=== PATIENT | male | born 1995 | race Caucasian/White ===

== ENCOUNTER 2025-08-06 15:13 | Outpatient (AMB) | payer OTHER, SELFPAY ==
--- NOTE | 2025-08-06 15:33 | A.OFFPC_ITS ---
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 Accompanied by: Self / Same As Patient Allergies No Known Allergies Allergy (Verified 08/06/25 15:35) Medication List - Last Reconciled 08/06/25 by Shankar Yanes MD No Known Home Meds Tobacco use date assessed: 08/06/25 Dental Screening Dental Screen Date: 08/06/25 Did you have a dental visit in the last 12 months?: Yes Did you have a dental problem in the last 6 months where you did not have access to dental care?: No Was dental information given to patient?: Patient has dentist HPI HPI Comments History of Present Illness Details History of Present Illness The patient is a 30 year old male presenting to [facility] care and for evaluation of chronic diarrhea and a high cholesterol reading. Diarrhea: The patient reports experiencing unpredictable, diarrhea-like bowel movements for a few years. He notes these symptoms can be triggered by heavy alcohol consumption or by eating certain foods, such as a burrito containing chicken, lettuce, cheese, and queso. He has no prior diagnosis of lactose intolerance or any other gastrointestinal condition, as he has not seen a doctor in 10 years. Hypercholesterolemia: The patient received a high cholesterol reading at a walk-in clinic at his place of employment, which prompted him to seek care. There is a family history of high cholesterol in his father and both of his grandfathers experienced heart attacks. Surgical History: - No surgical history reported. Medications: - The patient denies taking any regular medications. - He has taken [id number] medicati ons for occasional sinus infections. - He recently completed a 7-day course o f an unspecified antibiotic for a sinus infection over Thanksgiving week. Social History: - Employment: The patient works in [employer] for the [employer]. - Alcohol Use: He reports drinking socia lly on weekends, consuming three to four drinks, but does not drink during the week. - Tobacco Use: He denies any history of smoking. - Illicit Drug Use: He denies any use of illicit drugs. - Sleep: He reports good sleep and has n ever had issues with sleeping. Family History: - Father: History of high cholesterol an d high blood pressure. - Grandfathers (maternal and paternal): Both had heart attacks. - Aunt: from cancer. Diagnostic Results: - Labs: A prior cholesterol reading from a walk-in clinic was high. Past Medical History - No significant past medical history re ported. - No prior hospitalizations. - Reports occasional sinus infections. Health Maintenance - Comprehensive lab work was ordered to establish baseline health status. - The panel includes a complete blood co unt (CBC), comprehensive metabolic panel (CMP), hemoglobin A1c, hepatitis B and C screens, HIV screen, lipid panel, magne sium, syphilis screen (RPR), thyroid panel (TSH), urinalysis, vitamin B12, folate, and vitamin D levels. - Follow-up will be scheduled to discuss any abnormalities found in the lab results. - The patient was educated on skin cance r screening using the ABCDEs of melanoma (Asymmetry, Border, Color, Diameter, Evolving) due to the presence of multiple birthmarks on his back. [facility] Medical History (Updated 08/06/25 @ 18:28 by Shankar Yanes MD) Hypercholesterolemia Diarrhea Family History (Updated 08/06/25 @ 15:38 by Lion Craig CMA) Maternal Grandfather Heart attack Paternal Grandfather Heart attack Father Hypertension Paternal Aunt Cancer Family/Other Stroke Social History (Updated 08/06/25 @ 15:39 by Lion Craig CMA) Housing: House Alcohol intake: current Comment: Socially, 3-4 drinks 1 to 2 times a week Patient Tobacco Use Status: Never used Tobacco e-Cigarette/Vaping Use: Never Used Second Hand Smoke Exposure: No service: No Current occupational status: employed Current occupation: [employer] Current occupational exposures/hazards: No Cognitive needs: No Hearing needs: No Vision needs: No Questionnaire PHQ-9 Over the last 2 weeks, how often have you been bothered by any of the following problems? 1. Little interest or pleasure in doing things: not at all 2. Feeling down, depressed, or hopeless: not at all 3. Trouble falling or staying asleep, or sleeping too much: not at all 4. Feeling tired or having little energy: not at all 5. Poor appetite or overeating: not at all 6. Feeling bad about yourself - or that you are a failure or have let yourself or your family down: not at all 7. Trouble concentrating on things, such as reading the newspaper or watching television: not at all 8. Moving or speaking so slowly that other people could have noticed. Or the opposite - being so fidgety or restless that you have been moving around a lot more than usual: not at all 9. Thoughts that you would be better off or of hurting yourself in some way: not at all Total score: 0 Depression Screening Interpretation: Negative Depression Screening Done: Yes 13821 - PHQ-9 Billing: Yes Source: Developed by Drs. Gordy Chong, Kamala Greenfield, Arben Colby and colleagues, with an educational truman from [employer]. Thrive Questionnaire Date Thrive assessed: 08/06/25 I am a: Patient What is your living situation today?: I have a steady place to live Within the past 12 months, did the food you bought not last and you didn't have the money to get more?: Never true Within the past 12 months, did you worry whether your food would run out before you got money to buy more?: Never true Do you have trouble paying for medicines?: No Do you have trouble getting transportation to medical appointments?: No Do you have trouble paying your heating and electricity bill?: No Do you have trouble taking care of your child, family member or friend?: No Do you have trouble with day-to-day activities such as bathing, preparing meals, shopping, managing finances, etc.?: No Are you currently unemployed and looking for a job?: No Are you interested in more education?: No Please select the resources that you would like help with: None Currently or been in a relationship where the following occur: No concerns repor levi THRIVE Score: 0 AUDIT C Alcohol Use Questionnaire (AUDIT-C) 1. How often do you have a drink containing alcohol?: 2-3 times a week 2. How many drinks containing alcohol do you have on a typical day when you are drinking?: 1 or 2 3. How often do you have six or more drinks on one occasion?: Less than monthly Total Score: 4 ASHA-7 AMB Questionnaire ASHA-7 Date ASHA - 7 assessed: 08/06/25 Feeling nervous, anxious, or on edge: 0 = Not at all Not being able to stop or control worryin = Not at all Worrying too much about different things: 0 = Not at all Trouble relaxin = Not at all Being so restless that it is hard to sit still: 0 = Not at all Becoming easily annoyed or irritable: 0 = Not at all Feeling afraid as if something awful might happen: 0 = Not at all Total ASHA-7 score (0-4 normal; 5-9 mild; 10-14 moderate; 15-21 severe): 0 Source: Developed by Drs. Gordy Chong, Kamala Greenfield, Arben Colby and colleagues, with an educational truman from [employer]. ASHA-7 Assessment Billing ASHA-7 Assessment Tool: ASHA-7 Assessment 18905 Review of Systems Narrative Review of Systems - General: Denies medical issues. - Gastrointestinal: Reports unpredictable, chronic diarrhea-like episodes for s everal years, sometimes triggered by alcohol or certain foods. - HEENT: Reports recent sinus infection and possible residual congestion. - Neurological: Reports good sleep without any issues. 10-point ROS reviewed and negative except as noted in HPI Physical exam (Primary Care) Vital Signs: Last Vital Signs Temp 97.6 F 08/06/25 15:39 Pulse 95 08/06/25 15:39 Resp 18 08/06/25 15:39 BP 114/73 08/06/25 15:39 Pulse Ox 98 08/06/25 15:39 BMI result Body Mass Index 25.7 Tobacco/Smoking Status: Tobacco use Status Tobacco use date assessed 08/06/25 08/06/25 15:41 Patient Tobacco Use Status Never used Tobacco 08/06/25 15:41 e-Cigarette/Vaping Use Never Used 08/06/25 15:41 PHQ-9: PHQ-9 Score PHQ-9: Total score 0 08/06/25 15:41 Depression Screening Interpretation: Negative Thrive Assessment: Date of Thrive Assessment Date Thrive assessed 08/06/25 08/06/25 15:35 Currently or been in a relationship where the following occur: No concerns reported Narrative Physical Exam General: Well-appearing, in no acute distress. Vital signs: Within normal limits. HEENT: Normocephalic, atraumatic. PERRLA, EOMI. Conjunctiva clear, sclera anicteric. Oropharynx clear, mucous membranes moist. TMs intact bilaterally. Neck: Supple, no lymphadenopathy, no thyromegaly, no JVD or carotid bruits. Cardiovascular: RRR, normal S1/S2, no murmurs, rubs, or gallops. Peripheral pulses 2+ and symmetric. No edema. Respiratory: Lungs clear to auscultation bilaterally, no wheezes, rales, or rhonchi. Normal effort. Abdomen: Soft, non-tender, non-distended. Normoactive bowel sounds. No hepatosplenomegaly, no masses. MSK: Full range of motion, no joint swelling or deformity. Normal gait. Skin: Warm, dry, intact. No rashes, lesions, or pallor. Multiple birthmarks noted; patient advised on monitoring for asymmetry, border irregularity, color variation, diameter, and evolution (ABCDE) for melanoma. Neuro: Alert and oriented x3. Cranial nerves II-XII intact. Strength 5/5 th roughout. Sensation intact. Reflexes 2+ symmetric. Normal coordination and gait. Psych: Appropriate mood and affect. Normal judgment and insight. Coding Level of Care Code New Pt Level 4 (07655) Diagnoses Diarrhea R19.7 Hypercholesterolemia E78.00 Additional Codes ASHA-7 Assessment Billing - ASHA-7 Assessment Tool: ASHA-7 Assessment 09805 ([id number]) PHQ-9 - 69973 - PHQ-9 Billing: Yes ([id number]) Assessment & Plan Assessment & Plan (1) Diarrhea: Code(s): R19.7 - Diarrhea, unspecified Category: Medical (2) Hypercholesterolemia: Code(s): E78.00 - Pure hypercholesterolemia, unspecified Category: Medical Plan Consent Patient was informed and verbally consented to the use of an ambient scribe for clinic note documentation during this visit. Plan 1. Diarrhea - The patient's symptoms are suggestive of lactose intolerance, given the association with cheese and queso. - The patient was advised to keep a food journal to track what he eats and how he feels afterward to help identify triggers for his symptoms. 2. Hypercholesterolemia - Given the patient's report of a high cholesterol reading and family history of hypercholesterolemia and heart attacks, comprehensive lab work is indicated. - A lipid screen will be performed as part of a comprehensive blood panel to assess cholesterol and triglyceride levels. Discussion Notes Patient Instructions - Go for blood work today. The lab closes at 4:00 PM. - Keep a food journal to track what you eat and any symptoms that follow to help identify triggers for your diarrhea. - Monitor your birthmarks for any changes in asymmetry, border, color, diameter, or evolution (ABCDEs of melanoma), and report any concerns. Medical Decision Making Total Time Statement 30 min Total time spent caring for the patient today includes pre-visit chart review, documentation, review of laboratory and diagnostic imaging results, medication reconciliation, medically necessary evaluation, counseling on diagnoses, care coordination, ordering appropriate tests and medications, review of tests performed by other providers, reporting test results to the patient, and communication with other healthcare providers. Orders: Orders Hepatitis B Surface Antigen Today Z13.9 - Encounter for screening, unspecified Syphilis Screen Today Z13.9 - Encounter for screening, unspecified Comprehensive Met. Panel Today Z13.9 - Encounter for screening, unspecified Hepatitis C Antibody Today Z13.9 - Encounter for screening, unspecified TSH reflex Free T4 Today Z13.9 - Encounter for screening, unspecified HIV Ab/Ag Today Z13.9 - Encounter for screening, unspecified UA CC w/rflx Micro + Cult Today Z13.9 - Encounter for screening, unspecified Hemoglobin A1c Today Z13.9 - Encounter for screening, unspecified Hepatitis B Surface Antibody Today Z13.9 - Encounter for screening, unspecified Complete Blood Count Auto Diff Today Z13.9 - Encounter for screening, unspecified Lipid Panel Today Z13.9 - Encounter for screening, unspecified Vitamin B12 and Folate Today Z13.9 - Encounter for screening, unspecified Magnesium Today Z13.9 - Encounter for screening, unspecified Vitamin D 1,25 dihydroxy Today Z13.9 - Encounter for screening, unspecified
[2025-08-06 15:39] VITALS: BP 114/73; PULSE 95; RESP 18; TEMP 36.4; O2SAT 98; BMI 25.7
== END 2025-08-06 16:15 | disposition home or self-care (01) ==
LOC: HO.HMCFMS 15:14
PROVIDERS: PCP Student in an Organized Health Care Education/Training Program; Visit Provider Student in an Organized Health Care Education/Training Program
DX: R19.7 Diarrhea, unspecified (principal); E78.00 Pure hypercholesterolemia, unspecified

== ENCOUNTER 2025-08-06 15:13 | Outpatient (REF) | payer OTHER, SELFPAY ==
[2025-08-06 18:26] LABS: MANUAL DIFF FLAG NO
[2025-08-06 18:35] LABS: Hematocrit 47.6 % (42.0-52.0); Hemoglobin 16.0 g/dl (14.0-18.0); Imm Gran Abs Auto 0.02 X10*3/uL (0.00-0.03); Imm Gran Pct Auto 0.3 % (0.0-0.4); Lymphocytes Absolute Auto 2.0 X10*3/uL (1.2-4.9); Mean Corpuscular HGB Conc 33.6 g/dl (31.0-36.0); Mean Corpuscular Hemoglobin 30.4 pg (27.0-33.0); Mean Corpuscular Volume 90.3 fL (80.0-98.0); NRBC Abs Auto 0.000 X10*3/uL (0.0-0.012); NRBC Pct Auto 0.0 /100WBC (0.0-0.2); Platelet Count 292 X10*3/uL (160-400); Red Blood Count 5.27 X10*6/uL (4.60-5.80); White Blood Count 5.9 X10*3/uL (4.8-10.8)
[2025-08-06 18:58] LABS: Appearance Urine Clear; Glucose Urine UA Negative (Negative); PH 7.5 (5.0-9.0); Specific Gravity - Urine 1.010 (1.005-1.025)
[2025-08-06 19:04] LABS: Alanine Aminotransferase 51 U/L (0-40); Albumin Level 5.1 g/dL (3.5-5.0); Alkaline Phosphatase 106 U/L (39-117); Anion Gap 12 (12-20); Aspartate Amino Transferase 33 U/L (5-37); Blood Urea Nitrogen 12 mg/dL (9-16); Calcium 9.9 mg/dL (8.4-10.2); Carbon Dioxide 31 mmol/L (22-29); Chloride 105 mmol/L (96-108); Cholesterol 252 mg/dL (<200); Estimated Glomerular Filt Rate > 60; HDL Cholesterol 40 mg/dL (>40); Magnesium 2.4 mg/dL (1.6-2.6); Potassium 4.4 mmol/L (3.3-5.1); Sodium 144 mmol/L (135-145); Total Protein 8.2 g/dL (6.5-8.0); Triglycerides 295 mg/dL (<150)
[2025-08-06 19:35] LABS: Folate 13.4 ng/mL (> or = 4.0); Vitamin B12 440 pg/mL (200-900)
[2025-08-07 04:00] LABS: Syphilis Screen Nonreactive (Nonreactive)
[2025-08-07 04:38] LABS: HBS Num1 32.67 mIU/mL (0-7.99); HBsAGNum1 0.37 S/CO (0.00-0.99); HIV Num 1 0.07 S/CO (0.00-0.99); Hepatitis B Surface Antigen Negative (Negative); ~HepC Num1 0.21 S/CO (0.00-0.79); ~Hepatitis B Surface Antibody REACTIVE (Nonreactive); ~Hepatitis C Antibody Nonreactive (Nonreactive)
[2025-08-10 14:53] LABS: VITAMIN D (1,25 OH) D3 51 pg/mL; Vit D (1,25-Dihydroxy) Total 51 pg/mL (18-72); Vitamin D (1,25 OH) D2 <8 pg/mL
== END 2025-08-06 15:14 | disposition home or self-care (01) ==
LOC: HO.HKASLDS 15:13
PROVIDERS: PCP Student in an Organized Health Care Education/Training Program; Visit Provider Student in an Organized Health Care Education/Training Program
DX: Z13.9 Encounter for screening, unspecified (principal); R19.7 Diarrhea, unspecified; E78.00 Pure hypercholesterolemia, unspecified
CPT/HCPCS: 36415; 80053; 80061; 81003; 82607; 82652; 82746; 83036; 83735; 84443; 85025; 86706; 86780; 86803; 87340; 87389; 96127